=== PATIENT | female | born 1990 | race Caucasian/White ===

== ENCOUNTER 2016-05-19 16:54 | Emergency (ER) | payer OTHER ==
[~2016-05-19] VITALS: Ht 154.9 cm; Wt 77.1 kg
[2016-05-19 16:58] VITALS: BP 113/75; PULSE 73; RESP 16; TEMP 97.9; O2SAT 97
--- NOTE | 2016-05-19 18:27 | NUR ---
Patient states that she needs to go home to feed her baby. [place] present to [place] to [place]. States that she has to go. LWBS.
== END 2016-05-19 18:27 | disposition left against medical advice (07) ==
LOC: SED 16:54
DX: R07.81 Pleurodynia (principal); R11.2 Nausea with vomiting, unspecified; Z53.21 Procedure and treatment not carried out due to patient leaving prior to being seen by health care provider
CPT/HCPCS: 71010; 99281